=== PATIENT | female | born 1960 | race Caucasian/White ===

== ENCOUNTER 2018-02-15 06:30 | Observation (INO) | payer OTHER ==
[2018-02-13 09:43] LABS: BASOPHILS % 0.6 % (0.0-1.0); EOSINOPHILS # (AUTO) 0.2 (0.0-0.4); EOSINOPHILS % 2.3 % (0.0-6.0); HEMATOCRIT 45.4 % (34.2-44.1); HEMOGLOBIN 15.2 g/dL (12.0-16.0); LYMPHOCYTES # (AUTO) 2.6 (1.0-3.2); LYMPHOCYTES % 37.9 % (18.0-39.1); MEAN CORPUSCULAR HEMOGLOBIN 29.6 pg (28-32); MEAN CORPUSCULAR HGB CONC 33.5 g/dL (31-35); MEAN CORPUSCULAR VOLUME 88.3 fL (81-99); MONOCYTES # (AUTO) 0.6 (0.2-0.8); NEUTROPHILS # (AUTO) 3.6 (2.1-6.9); NEUTROPHILS % 50.9 % (38.7-80.0); PLATELET COUNT 267 x10e3/uL (140-360); RED BLOOD COUNT 5.14 x10e6/uL (3.6-5.1); RED CELL DISTRIBUTION WIDTH 12.9 % (11.7-14.4)
--- NOTE | 2018-02-13 09:49 | Diagnostic Imaging Report ---
PROCEDURE: Frontal and lateral views of the chest. COMPARISON: None. INDICATIONS: PRE OPERATIVE CHEST X-RAY FOR NECK SURGERY FINDINGS: Lines/tubes: None. Lungs: The lungs are well inflated and clear. There is no evidence of pneumonia or pulmonary edema. Bibasilar atelectasis. Pleura: There is no pleural effusion or pneumothorax. Heart and mediastinum: The heart and the mediastinum are normal. Bones: No acute bony abnormality. Degenerative changes of the thoracic spine. IMPRESSION: No acute radiographic abnormality. Dictated by: Miguel Parra M.D. on 02/13/2018 at 9:50 Electronically approved by: Miguel Parra M.D. on 02/13/2018 at 9:50
[2018-02-13 10:09] LABS: ANION GAP 10.8 mmol/L (8-16); BLOOD UREA NITROGEN 14 mg/dL (7-26); BUN/CREATININE RATIO 17 (6-25); CALCIUM 9.7 mg/dL (8.4-10.2); CARBON DIOXIDE 30 mmol/L (22-29); CHLORIDE 103 mmol/L (98-107); CREATININE, SERUM 0.81 mg/dL (0.57-1.11); EST GLOMERULAR FILTRATION RATE > 60 ML/MIN (60-); GLUCOSE 96 mg/dL (74-118); INR 0.92; POTASSIUM 4.8 mmol/L (3.5-5.1); PROTHROMBIN TIME 11.6 seconds (11.9-14.5); SODIUM 139 mmol/L (136-145)
[2018-02-13 10:10] LABS: PARTIAL THROMBOPLASTIN TIME 26.9 seconds (23.8-35.5)
[~2018-02-15] VITALS: Ht 162.6 cm; Wt 89.4 kg
[~2018-02-15 06:30] MED LIST: IBUPROFEN200 MG PO; LEVOTHYROXINE50 MCG PO; LOSARTAN POTASS25 MG PO; SYNTHROID125 MCG PO; ULTRAM 50MG50 MG PO
--- OUTSIDE RECORDS SUMMARY | 2018-02-15 06:33 | XMS REPORT ---
Author [facility] Address Unknown Phone Unavailable Care Team Providers Care Ore Trimmer Name Role Phone ISIS BRODY Unavailable Unavailable Problems This patient has no known problems. Allergies, Adverse Reactions, Alerts This patient has no known allergies or adverse reactions. Medications This patient has no known medications. Results Test Description Test Time Test Comments Text Results Atomic Results Result Comments CHEST 2 VIEWS [place] [address] Patient Name: ADRIAN IBANEZ MR #: [id number] : 1960 Age/Sex: 58/F Req #: [id number] Adm Physician: Ordered by: ISIS BRODY MD Report #: [id number] Location: OR Room/Bed: Procedure: [id number] DX/CHEST 2 VIEWS Exam Date: 02/13/18 Exam Time: 0900 REPORT STATUS: Signed PROCEDURE: Frontal and lateral views of the chest. COMPARISON: None. INDICATIONS: PRE OPERATIVE CHEST X- RAY FOR NECK SURGERY FINDINGS: Lines/tubes: None. Lungs: The lungs are well inflated and clear. There is no evidence of pneumonia or pulmonary edema. Bibasilar atelectasis. Pleura: There is no pleural effusion or pneumothorax. Heart and mediastinum: The heart and the mediastinum are normal. Bones: No acute bony abnormality. Degenerative changes of the thoracic spine. IMPRESSION: No acute radiographic abnormality. Dictated by: Erika Parra M.D. on 02/13/2018 at 9:50 Electronically approved by: Erika Parra M.D. on 02/13/2018 at 9:50 Dictated By: ERIKA PARRA MD 9 Transcribed By: EILEEN on 02/13/18949 COPY TO : ISIS BRODY MD
[2018-02-15] MEDS ORDERED: BUPIVACAINE 0.5%/EPI 30 ML SDV INJ ONE (06:34)
[2018-02-15] MEDS ORDERED: GELATIN SPONGE SZ 100 ONE (06:34)
[2018-02-15] MEDS ORDERED: THROMBIN FOR SOLN 5,000 UNIT VIAL ONE (06:34)
[2018-02-15] MEDS ORDERED: BACITRACIN 50,000 UNIT VIAL ONE (06:35)
[2018-02-15] MEDS ORDERED: CEFAZOLIN SOD 1 GM VIAL ONE (06:37)
[2018-02-15] MEDS ORDERED: LIDOCAINE HCL (LTA) 4 ML SOLN ONE (07:27)
[2018-02-15] MEDS: LACTATED RINGER'S 1,000 ML IV SCH ×2 (09:52→18:12)
[2018-02-15] MEDS ORDERED: ACETAMINOPHEN 325 MG TAB PO PRN (10:00)
[2018-02-15] MEDS ORDERED: MORPHINE SULFATE 5 MG/ML VIAL IM PRN (10:00)
[2018-02-15] MEDS ORDERED: ONDANSETRON HCL INJ 2 MG/ML VIAL IV PRN (10:00)
[2018-02-15] MEDS ORDERED: CARISOPRODOL 350 MG TAB PO PRN (10:00)
[2018-02-15] MEDS ORDERED: PROMETHAZINE HCL (IM) 25 MG/ML VIAL IM PRN (10:00)
[2018-02-15] MEDS ORDERED: MAGNESIUM/ALUMINUM/SIMETHICONE 30 ML UDC PO PRN (10:00)
[2018-02-15] MEDS ORDERED: CEPACOL SORE THROAT LOZENGES PO PRN (10:00)
[2018-02-15] MEDS ORDERED: HYDROMORPHONE 2MG/ML 2 MG/ML ML IV PRN (10:00)
[2018-02-15] MEDS ORDERED: FENTANYL CITRATE/PF 100MCG/2 ML INJ ONE ×2 (10:05→14:54)
--- NOTE | 2018-02-15 10:27 | Operative Report ---
DATE OF PROCEDURE: February 15, 2018 PREOPERATIVE DIAGNOSIS: C5-C6 disk herniation with radiculopathy, M50.122. POSTOPERATIVE DIAGNOSIS: C5-C6 disk herniation with radiculopathy, M50.122. PROCEDURES 1. C5-C6 anterior cervical diskectomy and microsurgical osteophyte resection and allograft fusion, 38005. 2. Preparation of [employer] cortical cancellous allograft, 99300. 3. C5-6 anterior cervical plating with Synthes ZPN plate, 02058. ANESTHESIA: General. INDICATIONS: Patient is a 58-year-old woman who presents with C5-6 disk herniation and spondylosis and right-sided cervical radiculopathy. She was taken to the operating room for anterior cervical decompression and fusion. PROCEDURE: After induction of general anesthesia, the patient was placed on the operating table in the supine position. The right side of the neck was prepped and draped in a sterile fashion. The fluoroscopic C-arm was positioned in cross-table lateral orientation. A small transverse incision was created on the right side of the neck superimposed on the C5-C6 disk space as determined by fluoroscopy. The platysma was divided in line with the incision. A subplatysmal dissection was carried out. An avascular plane of dissection was developed medial to the sternocleidomastoid muscle and was followed medial to the carotid sheath to the anterior border the cervical spine. The deep cervical fascia was opened. The esophagus was retracted to the left. The attachments of the longus coli muscles to the anterolateral aspects of the vertebral bodies of C5 and C6 were divided. The anterior longitudinal ligament was resected. [place] posts were inserted into C5 and C6. The [place] distractor was used to distract the disk space. The anterior annulus of the disk was incised with a #11 blade. The contents of the disk were thoroughly evacuated with angled curets and pituitary rongeurs. The posterior osteophytes were meticulously drilled with a 2-mm cutting bur on a high-speed drill until they were completely removed. The posterior annulus of the disk, herniated disk material and the posterior longitudinal ligament were resected layer by layer until the dura was fully exposed and decompressed. The medial aspects of uncinate processes were resected bilaterally to further expose and decompress the origins of the corresponding nerve roots. After satisfactory decompression had been achieved, the endplates were prepared for fusion. The disk space was sized and found to be 8 mm in height. A piece of MTF cortical cancellous allograft measuring 8 mm was selected and loaded onto a Synthes ZPN plate. The construct was inserted into the C5-C6 disk space under distraction and lateral fluoroscopic guidance and tapped in place until the plate was flush with the anterior margin of the vertebral bodies. The plate was then screwed to the endplates of C5 and C6 with 2 pairs of 14-mm screws. All screw holes were drilled and tapped under lateral fluoroscopic guidance. All screws were locked with the appropriate locking screws. An excellent construct was obtained. The wound was copiously irrigated with Bacitracin solution. Meticulous hemostasis was secured. Retractor was removed. The platysma was closed with 3-0 Vicryl sutures. The skin was closed with 4-0 Monocryl sutures in subcuticular fashion. Steri-strips and dressing were applied. The patient was awakened, extubated and taken to the postanesthesia care unit in stable condition. No intraoperative complications were encountered. Estimated blood loss was 10 mL. Job#: [id number]
[2018-02-15] MEDS ORDERED: HYDROMORPHONE 1MG/1ML INJ ONE (10:31)
[2018-02-15 11:38] VITALS: BP 151/81
[2018-02-15 11:56] VITALS: BP 151/81
[2018-02-15] MEDS: OXYCODONE/ACETAMINOPHEN 5-325 1 EACH TABLET PO PRN ×3 (12:50→23:55)
[2018-02-15] MEDS: CEFAZOLIN SOD 1 GM VIAL IV SCH ×2 (13:01→22:56)
[2018-02-15] MEDS ORDERED: CEFAZOLIN SOD 1 GM/D5W 50ML 50 ML IV SCH (14:00)
[2018-02-15] MEDS ORDERED: MIDAZOLAM HCL 2 MG/2 ML VIAL ONE (14:54)
[2018-02-15 16:11] VITALS: BP 143/79
[2018-02-15] MEDS ORDERED: DEXAMETHASONE SOD PHOS INJ 4 MG/ML VIAL ONE (18:25)
[2018-02-15] MEDS ORDERED: NEOSTIGMINE 5 MG/5ML SYR ONE (18:25)
[2018-02-15] MEDS ORDERED: LIDOCAINE HCL 2% LOCAL INJ 5 ML SDV VIAL INJ ONE (18:25)
[2018-02-15] MEDS ORDERED: PROPOFOL IV EMULSION 10 MG/ML 20 ML VIAL ONE (18:25)
[2018-02-15] MEDS ORDERED: GLYCOPYRROLATE INJ 1MG/ 5 ML SYR ONE (18:25)
[2018-02-15] MEDS ORDERED: ONDANSETRON HCL INJ 2 MG/ML VIAL ONE (18:25)
[2018-02-15] MEDS ORDERED: SEVOFLURANE INHAL SOLN 250 ML PEN BTL ONE (18:25)
[2018-02-15] MEDS ORDERED: ROCURONIUM BROMIDE 10 MG/ML 5ML VIAL ONE (18:25)
[2018-02-15 19:10] VITALS: BP 144/92
[2018-02-15] MEDS ORDERED: ZOLPIDEM TARTRATE 5 MG TAB PO PRN (21:00)
[2018-02-15 23:10] VITALS: BP 141/82
[2018-02-16 00:25] VITALS: BP 141/82
[2018-02-16] MEDS: LACTATED RINGER'S 1,000 ML IV SCH (02:21)
[2018-02-16 04:00] VITALS: BP 126/66
[2018-02-16] MEDS: CEFAZOLIN SOD 1 GM VIAL IV SCH (05:23)
[2018-02-16] MEDS: OXYCODONE/ACETAMINOPHEN 5-325 1 EACH TABLET PO PRN (05:24)
[2018-02-16] MEDS ORDERED: LEVOTHYROXINE SODIUM 125 MCG TAB PO SCH (06:30)
--- NOTE | 2018-02-16 07:16 | Diagnostic Imaging Report ---
PROCEDURE: X-RAY CERVICAL SPINE, TWO VIEWS COMPARISON:None. INDICATIONS:s/p surgery FINDINGS: See conclusion. CONCLUSION: AP and lateral views of the cervical spine from the skull base to the top of T1 show postsurgical changes at C5-6 with an intervertebral disc spacer, appropriately positioned. The visualized vertebral bodies are well-aligned. There is mild pre-vertebral soft-tissue swelling consistent with recent surgery. Multiple surgical clips in the cervical soft tissues which may relate to prior thyroidectomy. Dictated by: Jorge Onofre M.D. on 02/16/2018 at 7:17 Electronically approved by: Jorge Onofre M.D. on 02/16/2018 at 7:17
[2018-02-16 08:05] VITALS: BP 138/80
[2018-02-16] MEDS ORDERED: NORCO 7.5-3251 EACH PO (08:34)
[2018-02-16] MEDS ORDERED: LEVOTHYROXINE SODIUM 50 MCG TAB PO SCH (09:00)
[2018-02-16] MEDS ORDERED: LOSARTAN POTASSIUM 25 MG TAB PO SCH (09:00)
== END 2018-02-16 09:12 | disposition home or self-care (01) ==
LOC: OR 06:30 → IMCU 10:42
PROVIDERS: ADMIT Neurological Surgery; ATTEND Neurological Surgery
DX: M50.122 Cervical disc disorder at C5-C6 level with radiculopathy (principal); I10 Essential (primary) hypertension; E03.9 Hypothyroidism, unspecified; Z85.850 Personal history of malignant neoplasm of thyroid
CPT/HCPCS: 20931; 22551; 22845; 36415; 71046; 72040; 77003; 80048; 85025; 85610; 85730; 86850; 86900; 88304; 93005; C1713 ×2; C9359; G0378 ×2; J0690 ×2; J1100; J1170; J2001; J2250; J2405; J2270